=== PATIENT | female | born 1985 | race Caucasian/White ===

== ENCOUNTER 2016-11-15 07:37 | Inpatient (IN) | payer BC ==
[2016-11-15] MEDS ORDERED: Oxytocin in LR* 20 UNITS/1,000 ML BAG IVPB SCH ×2 (09:00→23:00)
[2016-11-15] MEDS ORDERED: Oxytocin in LR* 20 UNITS/1,000 ML BAG IVPB ONE (09:02)
[2016-11-15 09:34] LABS: Hematocrit 31 % (35-47); Hemoglobin 9.8 g/dl (12.0-16.0); Mean Corpuscular HGB Conc 32 g/dl (31-36); Mean Corpuscular Hemoglobin 27 pg (27-31); Mean Corpuscular Volume 85 fL (80-97); Mean Platelet Volume 9 um3 (7.4-10.4); Red Blood Count 3.61 10^6/ul (4.0-5.4); Red Cell Distribution Width 15 % (10.5-15); White Blood Count 11.6 10^3/ul (3.5-10.8)
[2016-11-15] MEDS ORDERED: OBEPIDURAL* 250 ML ONE (13:30)
[2016-11-15] MEDS ORDERED: Famotidine TAB* 20 MG PO PRN (14:12)
[2016-11-15] MEDS ORDERED: Sodium Citrate/Citric Acid* 15 ML UDC PO PRN (14:12)
[2016-11-15] MEDS ORDERED: Phenylephrine IV* 40 MCG/ML 10 ML SYRINGE IV PUSH PRN ×2 (14:12)
[2016-11-15] MEDS ORDERED: OBEPIDURAL* 250 ML EPIDURAL SCH (15:00)
[2016-11-15] MEDS ORDERED: Acetaminophen TAB* 325 MG PO PRN (22:10)
[2016-11-15] MEDS ORDERED: Methylergonovine INJ* 0.2 MG/ML 1ML AMP IM ONE (22:10)
[2016-11-15] MEDS ORDERED: Glycerin ADULT SUPP PR PRN (22:10)
[2016-11-15] MEDS ORDERED: Witch Hazel PAD* JAR TOPICAL PRN (22:10)
[2016-11-15] MEDS ORDERED: Dibucaine 1% 28.35 GM TUBE PR PRN (22:10)
[2016-11-15] MEDS ORDERED: Misoprostol TAB* 200 MCG PR ONE (22:10)
[2016-11-15] MEDS ORDERED: ceFAZolin 2 GM PREMIX(*) 2 GM/50 ML BAG IVPB ONE (22:14)
[2016-11-16] MEDS: Sertraline* 50 MG TAB PO SCH ×2 (00:42→09:28)
[2016-11-16] MEDS: Ibuprofen TAB* 600 MG PO PRN ×4 (00:55→21:32)
[2016-11-16 06:33] LABS: Hematocrit 24 % (35-47); Hemoglobin 7.7 g/dl (12.0-16.0); Mean Corpuscular HGB Conc 32 g/dl (31-36); Mean Corpuscular Hemoglobin 27 pg (27-31); Mean Corpuscular Volume 85 fL (80-97); Mean Platelet Volume 9 um3 (7.4-10.4); Red Blood Count 2.87 10^6/ul (4.0-5.4); Red Cell Distribution Width 15 % (10.5-15); White Blood Count 19.9 10^3/ul (3.5-10.8)
[2016-11-16] MEDS ORDERED: Simethicone CHEW TAB* 80 MG PO SCH (08:30)
[2016-11-16] MEDS: Docusate CAP* 100 MG PO SCH ×3 (09:03→21:32)
[2016-11-16] MEDS: Ferrous Gluconate TAB* 324 MG TAB PO SCH ×2 (09:04→21:32)
[2016-11-17 08:31] VITALS: BP 120/68
[2016-11-17] MEDS: Docusate CAP* 100 MG PO SCH ×2 (09:13→14:14)
[2016-11-17] MEDS: Ferrous Gluconate TAB* 324 MG TAB PO SCH (09:13)
[2016-11-17] MEDS: Ibuprofen TAB* 600 MG PO PRN (09:14)
== END 2016-11-17 17:00 | disposition home or self-care (01) | DRG 560 ==
LOC: MCHOBOUT 07:37 → MCHOB 08:43
PROVIDERS: ADMIT Obstetrics & Gynecology; ATTEND Obstetrics & Gynecology
PROC: 10E0XZZ Delivery of Products of Conception, External Approach (ICD-10-PCS; principal; 2016-11-15)
PROC: 3E033VJ Introduction of Other Hormone into Peripheral Vein, Percutaneous Approach (ICD-10-PCS; 2016-11-15)
PROC: 10907ZC Drainage of Amniotic Fluid, Therapeutic from Products of Conception, Via Natural or Artificial Opening (ICD-10-PCS; 2016-11-15)
PROC: 0UBG7ZZ Excision of Vagina, Via Natural or Artificial Opening (ICD-10-PCS; 2016-11-15)
DX: O48.0 Post-term pregnancy (principal); O99.344 Other mental disorders complicating childbirth; F32.9 Major depressive disorder, single episode, unspecified; F41.9 Anxiety disorder, unspecified; N89.8 Other specified noninflammatory disorders of vagina; O90.81 Anemia of the puerperium; D64.9 Anemia, unspecified; Z3A.41 41 weeks gestation of pregnancy; Z37.0 Single live birth
CPT/HCPCS: 36415; 85025; 86850; 86900; 86901; 88304; A9270-GY